=== PATIENT | female | born 1945 | race Hispanic/Latino ===

== ENCOUNTER 2018-11-29 08:58 | Observation (INO) | payer MEDICARE, BC ==
[2018-11-29 08:58] VITALS: BMI 29.8
--- NOTE | 2018-11-29 09:17 | C.PDOC ---
History Of Present Illness 73 year old female presents to the emergency department with complaints of midsternal chest pain since this morning. Patient states that she got up to go to the bathroom at 3AM and felt the pain in her right arm, radiating to her rig ht shoulder. Patient states that she thought her pain was initially muscular due to having a procedure done on her left AV fistula which involved stretching of her arms. Patient was receiving dialysis this morning and her chest pain worsened, she states that she finished the majority of her dialysis and was brought here. Patient describes the pain as a pressure, worse with movement and inspiration. Patient reports that she was given Nitro at the dialysis facility which made her dizzy and provided no relief of pain. Patient states that she takes a baby aspirin daily but did not take it today. Patient denies shortness of breath, dyspnea, swelling, nausea, vomiting, numbness/tingling, headache, back pain, and abdominal pain. Patient's manager advanced is Dr. Vences, and her advanced practice nurse psychotherapist is Dr. Tuttle. Patient reports having a catheterization 4 months ago due to some clogged arteries, but not intervention was necessary at that time. Time Seen by Provider: 11/29/18 09:06 Chief Complaint (Nursing): Chest Pain History Per: Patient History/Exam Limitations: no limitations Onset/Duration Of Symptoms: Hrs Current Symptoms Are (Timing): Still Present Quality: Pressure, "Pain" Associated Symptoms: denies: Nausea, Dyspnea Exacerbating Factors: Movement, Deep Breathing Nitro Therapy Administered: No Relief Past Medical History Reviewed: Historical Data, Nursing Documentation, Vital Signs Vital Signs: Last Vital Signs Temp 98.2 F 11/29/18 09:05 Pulse 76 11/29/18 09:05 Resp 16 11/29/18 09:05 BP 128/50 L 11/29/18 09:05 Pulse Ox 95 11/29/18 09:05 Primary Care Provider: Rubi Malcolm - Medical History PMH: Arthritis, CHF, COPD, Diabetes, Emphysema, Fractures, Gall Bladder Disease, HTN, Hypercholesterolemia, Hypothyroidism, Peripheral Edema, End Stage Renal Disease, Chronic Kidney Disease Surgical History: Cholecystectomy - [facility] Procedures FLUOROSCOPY OF R JUGULAR VEIN USING OT CONTRAST, GUIDANCE (11/04/15) INSERT INFUSION DEV IN R EXT JUGULAR VEIN, PERC (11/04/15) INSERTION OF INFUSION DEV INTO SUP VENA CAVA, PERC APPROACH (01/11/16) INSERTION OF SPACER INTO LEFT KNEE JOINT, OPEN APPROACH (01/11/16) PERFORMANCE OF URINARY FILTRATION, MULTIPLE (06/06/16) PERFORMANCE OF URINARY FILTRATION, SINGLE (11/04/15) REMOVAL OF LINER FROM LEFT KNEE JOINT, OPEN APPROACH (06/06/16) REMOVAL OF SYNTH SUB FROM L KNEE JT, OPEN APPROACH (01/11/16) SUPPLEMENT L KNEE JT, FEMORAL WITH LINER, OPEN APPROACH (06/06/16) TRANSFUSE NONAUT RED BLOOD CELLS IN PERIPH VEIN, PERC (11/04/15) Family History: States: No Known Family Hx - Social History Hx Tobacco Use: Yes Hx Alcohol Use: No Hx Substance Use: No - Immunization History Hx Tetanus Toxoid Vaccination: Yes Hx Influenza Vaccination: Yes Hx Pneumococcal Vaccination: Yes Review Of Systems Except As Marked, All Systems Reviewed And Found Negative. Constitutional: Negative for: Fever, Chills Cardiovascular: Positive for: Chest Pain Respiratory: Negative for: Cough, Shortness of Breath Gastrointestinal: Negative for: Nausea, Vomiting, Abdominal Pain Musculoskeletal: Negative for: Back Pain Neurological: Negative for: Headache Physical Exam - Physical Exam Appears: Non-toxic, No Acute Distress, Other (overweight) Skin: Warm, Dry Head: Atraumatic, Normacephalic Eye(s): bilateral: Normal Inspection Nose: Normal Oral Mucosa: Moist Neck: Normal, Supple Chest: Symmetrical, Tenderness (reproducible midsternal tenderness) Cardiovascular: Rhythm Regular, No Murmur Respiratory: No Wheezing, Other (lower lung congestion b/l) Gastrointestinal/Abdominal: Soft, No Tenderness, No Guarding, No Rebound Back: Normal Inspection, No CVA Tenderness, No Vertebral Tenderness, No Decreased ROM, No Paraspinal Tenderness Extremity: No Pedal Edema, Other (palpable thrill to the left wrist AV fistula, bandages noted to the left forearm) Pulses: Right Brachial: Normal, Left Radial: Normal, Right Radial: Normal, Left Femoral: Normal Neurological/Psych: Oriented x3, Normal Speech, Normal Cognition ED Course And Treatment - Laboratory Results Result Diagrams: 11/29/18 09:36 11/29/18 09:36 Interpretation Of ECG: NSR at 76bpm, possible left atrial enlargement, left ve ntricular hypertrophy, nonspecific ST abnormality. O2 Sat by Pulse Oximetry: 95 (RA) Pulse Ox Interpretation: Normal - Radiology CXR: Interpreted by Me, Read By Radiologist CXR Interpretation: Yes: No Acute Disease - Other Rad CHEST XRAY X-Ray: Read By Radiologist Interpretation: Accession No. : [id number]. Patient Name / ID : ESME BRANHC / [id number]. Exam Date : 11/29/2018 09:40:01 ( Approved ). Study Comment : Sex / Age : F / [id number]. Creator : Autumn Carlisle. Dictator : Autumn Carlisle. Car Wash Supervisor : Digital Service Engineer : Autumn Humphries. Approver2 : Report Date : 11/29/2018 10:29:07. My Comment : . Date of service: 11/29/2018. HISTORY: chest pain. COMPARISON: 06/10/2016. TECHNIQUE: Chest PA and lateral views. FINDINGS: LUNGS: Discoid atelectasis and/or [id number] the left lung base noted. No interval consolidation. PLEURA: No significant pleural effusion identified. No pneumothorax apparent. CARDIOVASCULAR: There is presence of aortic atherosclerotic calcification on x-ray. Borderline cardiomegaly. No significant appearing pulmonary venous congestion. Prior dialysis catheter removed. OSSEOUS STRUCTURES: Thoracic spondylosis. VISUALIZED UPPER ABDOMEN: Normal. OTHER FINDINGS: None. IMPRESSION: Interval removal of the right dialysis catheter. Crisscrossing discoid atelectasis at the lateral left lung base. Other findings as above. - Physician Consult Information Time Consulting Physician Contacted: 10:43 (Spoke with Dr Tuttle, Photographic Aide, in person and agrees with plan for hospitalization.) Physician Contacted: Rubi Malcolm Outcome Of Conversation: will place patient in observation. Medical Decision Making Medical Decision Making: Plan: EKG Chemistry Hematology CXR Aspirin 81mg PO Rapid Strep Group A Disposition - Disposition Disposition: HOSPITALIZED Disposition Time: 10:45 - PA / OIL FIELD WORKER / Resident Statement / has reviewed & agrees with the documentation as recorded. - Scribe Statement The provider has reviewed the documentation as recorded by the Scribe (David Etienne) All medical record entries made by the Scribe were at my direction and personally dictated by me. I have reviewed the chart and agree that the record accurately reflects my personal performance of the history, physical exam, medical decision making, and the department course for this patient. I have also personally directed, reviewed, and agree with the discharge instructions and disposition.
[2018-11-29 09:40] LABS: BASO # 0.1 K/uL (0.0-0.2); BASO % 0.9 % (0.0-2.0); EOS # 0.3 K/uL (0.0-0.7); EOS % 1.9 % (0.0-4.0); HEMOGLOBIN 11.4 g/dL (11.0-16.0); LYMPH # 1.5 K/uL (1.0-4.3); MEAN CELL VOLUME 89.5 fL (81.0-99.0); MEAN CORPUSCULAR HEMOGLOBIN 29.8 pg (27.0-31.0); MEAN CORPUSCULAR HGB CONC 33.3 g/dL (33.0-37.0); MEAN PLATELET VOLUME 10.3 fL (7.2-11.7); MONO # 1.3 K/uL (0.0-0.8); MONO % 9.4 % (0.0-10.0); NEUT # 10.2 K/uL (1.8-7.0); NEUT % 76.8 % (50.0-75.0); RBC 3.85 Mil/uL (3.80-5.20); RED CELL DISTRIBUTION WIDTH 15.9 % (11.5-14.5); WHITE BLOOD COUNT 13.3 K/uL (4.8-10.8)
[2018-11-29 09:56] LABS: ALB/GLOB RATIO 1.4 (1.0-2.1); ALBUMIN 4.2 g/dL (3.5-5.0); ALT/SGPT 13 U/L (9-52); AST/SGOT 18 U/L (14-36); BLOOD UREA NITROGEN 27 mg/dL (7-17); CALCIUM 8.8 mg/dl (8.6-10.4); GFR NON-AFRICAN AMERICAN 15
[2018-11-29 10:07] LABS: B-TYPE NATRIURETIC PEPTIDE 4580 pg/mL (0-900)
--- NOTE | 2018-11-29 10:32 | RAD ---
Date of service: 11/29/2018 HISTORY: chest pain COMPARISON: 06/10/2016 TECHNIQUE: Chest PA and lateral views FINDINGS: LUNGS: Discoid atelectasis and/or [id number] the left lung base noted. No interval consolidation. PLEURA: No significant pleural effusion identified. No pneumothorax apparent. CARDIOVASCULAR: There is presence of aortic atherosclerotic calcification on x-ray. Borderline cardiomegaly. No significant appearing pulmonary venous congestion. Prior dialysis catheter removed. OSSEOUS STRUCTURES: Thoracic spondylosis. VISUALIZED UPPER ABDOMEN: Normal. OTHER FINDINGS: None. IMPRESSION: Interval removal of the right dialysis catheter. Crisscrossing discoid atelectasis at the lateral left lung base. Other findings as above.
--- NOTE | 2018-11-29 10:46 | CP.PCM.CON ---
History of Present Illness - History of Present Illness History of Present Illness: 73 year old female presents to the emergency department with complaints of midsternal chest pain since this morning. Patient states that she got up to go to the bathroom at 3AM and felt the pain in her right arm, radiating to her right shoulder. Patient states that she thought her pain was initially muscular due to having a procedure done on her left AV fistula which involved stretching of her arms. Patient was receiving dialysis this morning and her chest pain began there, she states that she finished the majority of her dialysis and was brought here. Patient describes the pain as a pressure, worse with movement and inspiration. Patient reports that she was given Nitro at the dialysis facility which made her dizzy and provided no relief of pain. Patient states that she takes a baby aspirin daily but did not take it today. Patient denies shortness of breath, dyspnea, swelling, nausea, vomiting, numbness/tingling, headache, back pain, and abdominal pain. Patient's pattern duplicator is Dr. Vences, and her visual presentation manager is Dr. Tuttle. Patient reports having a catheterization 4 months ago due to some clogged arteries, but not intervention was necessary at that time. Vital Signs: Last Vital Signs Temp 98.2 F 11/29/18 09:05 Pulse 76 11/29/18 09:05 Resp 16 11/29/18 09:05 BP 128/50 L 11/29/18 09:05 Pulse Ox 95 11/29/18 09:05 Primary Care Provider: Rubi Malcolm - Medical History PMH: Arthritis, CHF, COPD, Diabetes, Emphysema, Fractures, Gall Bladder Disease, HTN, Hypercholesterolemia, Hypothyroidism, Peripheral Edema, End Stage Renal Disease, Chronic Kidney Disease, CAD Surgical History: Cholecystectomy AV fistula, left knee surgery - [facility], [facility] Procedures FLUOROSCOPY OF R JUGULAR VEIN USING [facility] CONTRAST, GUIDANCE (11/04/15) INSERT INFUSION DEV IN R EXT JUGULAR VEIN, PERC (11/04/15) INSERTION OF INFUSION DEV INTO SUP VENA CAVA, PERC APPROACH (01/11/16) INSERTION OF SPACER INTO LEFT KNEE JOINT, OPEN APPROACH (01/11/16) PERFORMANCE OF URINARY FILTRATION, MULTIPLE (06/06/16) PERFORMANCE OF URINARY FILTRATION, SINGLE (11/04/15) REMOVAL OF LINER FROM LEFT KNEE JOINT, OPEN APPROACH (06/06/16) REMOVAL OF SYNTH SUB FROM L KNEE JT, OPEN APPROACH (01/11/16) SUPPLEMENT L KNEE JT, FEMORAL WITH LINER, OPEN APPROACH (06/06/16) TRANSFUSE NONAUT RED BLOOD CELLS IN PERIPH VEIN, PERC (11/04/15) Family History: States:brother on dialysis - Social History Hx Tobacco Use: Yes Hx Alcohol Use: No Hx Substance Use: No - Immunization History Hx Tetanus Toxoid Vaccination: Yes Hx Influenza Vaccination: Yes Hx Pneumococcal Vaccination: Yes Review Of Systems Except As Marked, All Systems Reviewed And Found Negative. Constitutional: Negative for: Fever, Chills Cardiovascular: Positive for: Chest Pain Respiratory: Negative for: Cough, Shortness of Breath Gastrointestinal: Negative for: Nausea, Vomiting, Abdominal Pain Musculoskeletal: Negative for: Back Pain Neurological: Negative for: Headache Review of Systems - Constitutional Constitutional: Fatigue, Weakness - EENT Eyes: absent: As Per HPI, Blind Spots, Blurred Vision, Change in Vision, Decreased Night Vision, Diplopia, Discharge, Dry Eye, Exophthalmos, Floaters, Irritation, Itchy Eyes, Loss of Peripheral Vision, Pain, Photophobia, Requires Corrective Lenses, Sees Flashes, Spots in Vision, Tunnel Vision, Other Visual D isturbances, Loss of Vision, Other Ears: absent: As Per HPI, Decreased Hearing, Ear Discharge, Ear Pain, Tinnitus, Abnormal Hearing, Disequilibrium, Dizziness, Other Nose/Mouth/Throat: absent: As Per HPI, Epistaxis, Nasal Congestion, Nasal Discharge, Nasal Obstruction, Nasal Trauma, Nose Pain, Post Nasal Drip, Sinus Pain, Sinus Pressure, Bleeding Gums, Change in Voice, Dental Pain, Dry Mouth, Dysphagia, Halitosis, Hoarsness, Lip Swelling, Mouth Lesions, Mouth Pain, Odynophagia, Sore Throat, Throat Swelling, Tongue Swelling, Facial Pain, Neck Pa in, Neck Mass, Other - Cardiovascular Cardiovascular: Chest Pain, Dyspnea on Exertion - Respiratory Respiratory: Cough, Pain with Coughing - Gastrointestinal Gastrointestinal: Nausea - Genitourinary Genitourinary: As Per HPI - Musculoskeletal Musculoskeletal: Muscle Cramps, Muscle Weakness, Myalgias - Integumentary Integumentary: absent: As Per HPI, Acne, Alopecia, Bleeding Lesions, Change in Hair, Change in Nails, Change in Pigmentation, Changing Lesions, Dry Skin, Erythema, Furuncle, Hirsutism, Lesions, New Lesions, Non-Healing Lesions, Photosensitivity, Pruritus, Rash, Skin Pain, Skin Ulcer, Sores, Striae, Swelling, Unusual Bruising, Wounds, Jaundice, Other - Neurological Neurological: Weakness Past Patient History - Past Medical History & Family History Past Medical History?: Yes Pertinent Family History: brother on dialysis - Past Social History Smoking Status: Former Smoker Chewing Tobacco Use: No Cigar Use: No Alcohol: None Drugs: Denies Home Situation {Lives}: With Family Domestic Violence: Negative - CARDIAC Hx Congestive Heart Failure: Yes Hx Hypercholesterolemia: Yes Hx Hypertension: Yes Hx Peripheral Edema: Yes - PULMONARY Hx Chronic Obstructive Pulmonary Disease (COPD): Yes Hx Emphysema: Yes - NEUROLOGICAL Hx Neurological Disorder: Yes ("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") - HEENT Hx HEENT Problems: Yes ('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") Hx Cataracts: Yes - RENAL Hx Chronic Kidney Disease: Yes - ENDOCRINE/METABOLIC Hx Hypothyroidism: Yes - HEMATOLOGICAL/ONCOLOGICAL Hx Blood Disorders: Yes Hx Blood Transfusions: Yes Hx Blood Transfusion Reaction: No - INTEGUMENTARY Hx Dermatological Problems: No - MUSCULOSKELETAL/RHEUMATOLOGICAL Hx Arthritis: Yes Hx Fractures: Yes - GASTROINTESTINAL Hx Gall Bladder Disease: Yes - GENITOURINARY/GYNECOLOGICAL Hx Genitourinary Disorders: Yes Hx Urinary Tract Infection: Yes Other/Comment: breast CA - PSYCHIATRIC Hx Substance Use: No - SURGICAL HISTORY Hx Cholecystectomy: Yes - ANESTHESIA Hx Anesthesia: Yes Hx Anesthesia Reactions: No Hx Malignant Hyperthermia: No Meds Allergies/Adverse Reactions: Allergies Allergy/AdvReac Type Severity Reaction Status Date / Time morphine Allergy Severe "EXTREMELY Verified 11/29/18 09:04 DIFFICULT TO AROUSE" levofloxacin [From Levaquin] Allergy Intermediate "MY JOINTS Verified 11/29/18 09:04 SWEEL" soy Allergy Intermediate RASH Verified 11/29/18 09:04 mycin family - Allergy Severe "RECTAL Uncoded 06/06/16 09:56 BLEEDING" Physical Exam - Constitutional Appears: In Acute Distress, Chronically Ill - Head Exam Head Exam: ATRAUMATIC, NORMAL INSPECTION - Eye Exam Eye Exam: EOMI, Normal appearance - Neck Exam Neck exam: Positive for: Normal Inspection. Negative for: Tenderness - Respiratory Exam Respiratory Exam: Rhonchi, NORMAL BREATHING PATTERN - Cardiovascular Exam Cardiovascular Exam: REGULAR RHYTHM, +S1 - GI/Abdominal Exam GI & Abdominal Exam: Soft. absent: Tenderness - Extremities Exam Extremities exam: Positive for: normal inspection. Negative for: tenderness - Neurological Exam Neurological exam: Alert, CN II-XII Intact - Skin Skin Exam: Dry, Warm Results - Vital Signs Recent Vital Signs: Last Vital Signs Temp 98.2 F 11/29/18 09:05 Pulse 76 11/29/18 09:05 Resp 16 11/29/18 09:05 BP 128/50 L 11/29/18 09:05 Pulse Ox 95 11/29/18 10:43 - Labs Result Diagrams: 11/29/18 09:36 11/29/18 09:36 Labs: Laboratory Results - last 24 hr 11/29/18 11/29/18 11/29/18 09:36 09:36 10:07 WBC 13.3 H RBC 3.85 Hgb 11.4 Hct 34.4 MCV 89.5 MCH 29.8 MCHC 33.3 RDW 15.9 H Plt Count 228 MPV 10.3 Neut % (Auto) 76.8 H Lymph % (Auto) 11.0 L Lewis % (Auto) 9.4 Eos % (Auto) 1.9 Baso % (Auto) 0.9 Neut # (Auto) 10.2 H Lymph # (Auto) 1.5 Lewis # (Auto) 1.3 H Eos # (Auto) 0.3 Baso # (Auto) 0.1 Sodium 138 Potassium 4.1 Chloride 88 L Carbon Dioxide 39 H Anion Gap 15 BUN 27 H Creatinine 3.0 H Est GFR ( Amer) 19 Est GFR (Non-Af Amer) 15 Random Glucose 134 H D Calcium 8.8 Total Bilirubin 0.5 AST 18 ALT 13 Alkaline Phosphatase 95 Troponin I < 0.0120 NT-Pro-B Natriuret Pep 4580 H Total Protein 7.1 Albumin 4.2 Globulin 2.9 Albumin/Globulin Ratio 1.4 Grp A Beta Strep Ag Negative Assessment & Plan (1) Atypical chest pain Status: Acute (2) Type 2 diabetes mellitus with diabetic nephropathy Status: Acute (3) Cardiomyopathy Status: Acute - Assessment and Plan (Free Text) Plan: monitor CPs cardio eval dialysis MWF- to arrange
[2018-11-29 15:39] VITALS: RESP 20
--- NOTE | 2018-11-29 19:30 | CP.PCM.PN ---
<Emil Lin - Last Filed: 11/29/18 19:44> Subjective - Date & Time of Evaluation Date of Evaluation: 11/29/18 Time of Evaluation: 19:21 - Subjective Subjective: HOSPITALIST SERVICE 73F PMHX of DM, HTN, ESRD HD (MWF), Breast Ca-DCIS, Hypothyroidism, hx of recurrent DVT, admitted for chest pain from yesterday AM, now resolved. First fel pain radiating to Left arm 2 nights ago, then again at dialysis center yesterday during session. Was given nitro, no improvement. Pt recently had L AVF procedure done. Pt said pain was worse with movement and breathing. Patient states she is compliant with home meds but did not take her baby aspirin on day of admission. ROS Pos+ chest pain Neg- shortness of breath, dyspnea, swelling, nausea, vomiting, numbness/tingling, headache, back pain, and abdominal pain. Cardio: Dr. Vences, Cooker Sulfite: Dr. Tuttle. PMHx: DM HTN ESRD HD (MWF),Breast Ca-DCIS, Hypothyroidism, hx of recurrent DVT PSx: Cath Jul no stents, L AVF October 2018, knee replacement 2015 FH: denies Soc Hx denies Allergies: as documented in EMR Objective - Vital Signs/Intake and Output Vital Signs (last 24 hours): Temp Pulse Resp BP Pulse Ox 98.3 F 69 20 122/57 L 95 11/29/18 15:38 11/29/18 18:00 11/29/18 15:38 11/29/18 15:38 11/29/18 16:22 - Labs Labs: 11/29/18 09:36 11/29/18 09:36 - Additional Findings Additional findings: - Constitutional Appears: In Acute Distress, Chronically Ill - Head Exam Head Exam: ATRAUMATIC, NORMAL INSPECTION - Eye Exam Eye Exam: EOMI, Normal appearance - Neck Exam Neck exam: Positive for: Normal Inspection. Negative for: Tenderness - Respiratory Exam Respiratory Exam: Rhonchi, NORMAL BREATHING PATTERN - Cardiovascular Exam Cardiovascular Exam: REGULAR RHYTHM, +S1 - GI/Abdominal Exam GI & Abdominal Exam: Soft. absent: Tenderness - Extremities Exam Extremities exam: Positive for: normal inspection. Negative for: tenderness - Neurological Exam Neurological exam: Alert, CN II-XII Intact - Skin Skin Exam: Dry, Warm Assessment and Plan - Assessment and Plan (Free Text) Assessment: 73F admitted for chest pain, r/o ACS, to get HD today Plan: Chest Pain Hx of CAD -trop neg -Imdur 60 -ASA 81 -Dr Vences Cardio consulted f/u recs HTN -Norvasc 5 Daily -Coreg 12.5 BID -Hydralazine 50 TID ESRD -Dr Tuttle consulted -HD TTS -Procrit, Drisdol, Feosol, Sensipar DM -ISS high -Glucotrol 10 daily -Renal diabetic diet -Accuchecks Hypothyroidism -synthroid 200 daily -monitor Chronic DVTs -eliquis 5 BID PPx PTX Elequis DISPO: Pt transfered to our service, starting HD as per nephro, f/u Cardio recs, trops neg CK PGY1 dw Dr Aceves <Edi Aceves - Last Filed: 11/30/18 19:09> Subjective - Date & Time of Evaluation Time of Evaluation: 20:00 - Subjective Subjective: I have seen and examined the patient. I agree with the findings and plan of care as documented by Dr. Lin. Patient with chest pain. ROMIx3 with EKG. Aspirin and Statin. Consult to Dr Vences. ESRD history. Consult to Dr Tuttle. History of diabetes. NISS and accuchecks. Monitor for acute changes. Objective - Vital Signs/Intake and Output Vital Signs (last 24 hours): Temp Pulse Resp BP Pulse Ox 97.5 F L 61 20 148/62 95 11/30/18 07:58 11/30/18 07:58 11/30/18 07:58 11/30/18 09:26 11/30/18 07:58 Intake and Output: 11/30/18 12/01/18 18:59 06:59 Intake Total 480 Balance 480 - Labs Labs: 11/30/18 07:59 11/30/18 07:59
[2018-11-29] MEDS ORDERED: Dextrose 50% SYRINGE Inj (50 ml) IV PRN (19:36)
[2018-11-29] MEDS ORDERED: Glucagon Recombinant 1 mg Inj IM PRN (19:36)
[2018-11-29] MEDS ORDERED: Ipratropium 0.02% Inhal Soln (0.5 mg/2.5 ml) UD IH SCH (20:00)
[2018-11-29] MEDS: (Novolin R) Insulin Human Regular 100 units/ml vial SC SCH (21:47)
[2018-11-29] MEDS: Ipratropium 0.02% Inhal Soln (0.5 mg/2.5 ml) UD IH SCH ×2 (22:26→23:53)
[2018-11-30] MEDS: Ipratropium 0.02% Inhal Soln (0.5 mg/2.5 ml) UD IH SCH ×3 (03:25→11:15)
[2018-11-30] MEDS ORDERED: Levothyroxine 200 MCG TAB PO SCH (06:30)
[2018-11-30] MEDS: (Novolin R) Insulin Human Regular 100 units/ml vial SC SCH ×2 (07:38→11:30)
[2018-11-30 07:59] VITALS: PULSE 61; TEMP 97.5; O2SAT 95
[2018-11-30 08:08] LABS: BASO # 0.1 K/uL (0.0-0.2); BASO % 1.4 % (0.0-2.0); EOS # 0.4 K/uL (0.0-0.7); EOS % 5.3 % (0.0-4.0); HEMOGLOBIN 10.9 g/dL (11.0-16.0); LYMPH # 1.7 K/uL (1.0-4.3); LYMPH % 23.6 % (20.0-40.0); MEAN CORPUSCULAR HEMOGLOBIN 30.4 pg (27.0-31.0); MEAN CORPUSCULAR HGB CONC 33.4 g/dL (33.0-37.0); MEAN PLATELET VOLUME 9.9 fL (7.2-11.7); MONO % 13.7 % (0.0-10.0); NEUT # 4.1 K/uL (1.8-7.0); RBC 3.59 Mil/uL (3.80-5.20); RED CELL DISTRIBUTION WIDTH 15.9 % (11.5-14.5); WHITE BLOOD COUNT 7.3 K/uL (4.8-10.8)
--- NOTE | 2018-11-30 08:41 | CP.PCM.CON ---
History of Present Illness - History of Present Illness History of Present Illness: The pt is a 73 yo female with PAD (s/p vascular surgery right leg), episode atrial fib (eliquis), pulmonary embolism, and non obstructive CAD ([place] [facility] [place] 50% LAD, 60% LCX). The day before yesterday, the patient was at the vein access center having a revascularization procedure on her right forearm av fistla. The nurse pulled her arm vigorously. yesterday, she had chest pain for the entire day, more than 12 hours,. It hurt to take a deep breath. No chest painb today. ECG is normal TNI are negative. Review of Systems - Review of Systems All systems: reviewed and no additional remarkable complaints except (as above) Past Patient History - Past Medical History & Family History Past Medical History?: Yes - Past Social History Smoking Status: Former Smoker Chewing Tobacco Use: No Cigar Use: No Alcohol: None Drugs: Denies Home Situation {Lives}: With Family Domestic Violence: Negative - CARDIAC Hx Congestive Heart Failure: Yes Hx Hypercholesterolemia: Yes Hx Hypertension: Yes Hx Peripheral Edema: Yes - PULMONARY Hx Chronic Obstructive Pulmonary Disease (COPD): Yes Hx Emphysema: Yes - NEUROLOGICAL Hx Neurological Disorder: Yes ("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") - HEENT Hx HEENT Problems: Yes ('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") Hx Cataracts: Yes - RENAL Hx Chronic Kidney Disease: Yes - ENDOCRINE/METABOLIC Hx Hypothyroidism: Yes - HEMATOLOGICAL/ONCOLOGICAL Hx Blood Disorders: Yes Hx Blood Transfusions: Yes Hx Blood Transfusion Reaction: No - INTEGUMENTARY Hx Dermatological Problems: No - MUSCULOSKELETAL/RHEUMATOLOGICAL Hx Arthritis: Yes Hx Fractures: Yes - GASTROINTESTINAL Hx Gall Bladder Disease: Yes - GENITOURINARY/GYNECOLOGICAL Hx Genitourinary Disorders: Yes Hx Urinary Tract Infection: Yes Other/Comment: breast CA - PSYCHIATRIC Hx Substance Use: No - SURGICAL HISTORY Hx Cholecystectomy: Yes - ANESTHESIA Hx Anesthesia: Yes Hx Anesthesia Reactions: No Hx Malignant Hyperthermia: No Meds Allergies/Adverse Reactions: Allergies Allergy/AdvReac Type Severity Reaction Status Date / Time morphine Allergy Severe "EXTREMELY Verified 11/29/18 09:04 DIFFICULT TO AROUSE" levofloxacin [From Levaquin] Allergy Intermediate "MY JOINTS Verified 11/29/18 09:04 SWEEL" soy Allergy Intermediate RASH Verified 11/29/18 09:04 mycin family - Allergy Severe "RECTAL Uncoded 06/06/16 09:56 BLEEDING" - Medications Medications: Current Medications Amlodipine Besylate (Norvasc) 5 mg PO DAILY [facility] Apixaban (Eliquis) 5 mg PO BID [facility] Aspirin (Aspirin Chewable) 81 mg PO DAILY [facility] Carvedilol (Coreg) 12.5 mg PO BID [facility] Cinacalcet (Sensipar) 30 mg PO DAILY [facility] Dextrose (Dextrose 50% Inj) 0 ml IV STAT PRN; Protocol PRN Reason: Hypoglycemia Protocol Dextrose (Glutose 15) 0 gm PO ONCE PRN; Protocol PRN Reason: Hypoglycemia Protocol Docusate Sodium (Colace) 100 mg PO BID [facility] Epoetin Vishnu (Procrit) 10,000 unit IV TTS [facility] Ergocalciferol (Drisdol 50,000 Intl Units Cap) 1 cap PO QWK [facility] Ferrous Sulfate (Feosol) 325 mg PO DAILY [facility] Glipizide (Glucotrol) 10 mg PO DAILY [facility] Glucagon (Glucagen Diagnostic Kit) 0 mg IM STAT PRN; Protocol PRN Reason: Hypoglycemia Protocol Hydralazine HCl (Apresoline) 50 mg PO TID [facility] Dextrose (Dextrose 5% In Water 1000 Ml) 1,000 mls @ 0 mls/hr IV .Q0M PRN; Protocol PRN Reason: Hypoglycemia Protocol Insulin Human Regular (Novolin R) 0 unit SC ACHS [facility]; Protocol Last Admin: 11/30/18 07:38 Dose: Not Given Ipratropium Artesian (Atrovent) 0.5 mg IH RQ4 [facility] Last Admin: 11/30/18 08:01 Dose: 0.5 mg Isosorbide Mononitrate (Imdur) 60 mg PO DAILY [facility] Levothyroxine Sodium (Synthroid) 200 mcg PO DAILY@0630 [facility] Last Admin: 11/30/18 06:25 Dose: 200 mcg Pantoprazole Sodium (Protonix Ec Tab) 40 mg PO DAILY [facility] Physical Exam - Constitutional Appears: Well (pressing on the patient's chest easily reproduces the patient's chest pain) - Head Exam Head Exam: ATRAUMATIC - Eye Exam Eye Exam: EOMI Pupil Exam: NORMAL ACCOMODATION - ENT Exam ENT Exam: Mucous Membranes Moist - Neck Exam Neck exam: Positive for: Normal Inspection - Respiratory Exam Respiratory Exam: Clear to Auscultation Bilateral - Cardiovascular Exam Cardiovascular Exam: REGULAR RHYTHM - GI/Abdominal Exam GI & Abdominal Exam: Normal Bowel Sounds - Extremities Exam Extremities exam: Positive for: normal inspection - Back Exam Back exam: NORMAL INSPECTION - Neurological Exam Neurological exam: Alert, CN II-XII Intact, Oriented x3, Reflexes Normal - Psychiatric Exam Psychiatric exam: Normal Affect, Normal Mood - Skin Skin Exam: Dry, Normal Color Results - Vital Signs Recent Vital Signs: Last Vital Signs Temp 97.5 F L 11/30/18 07:58 Pulse 61 11/30/18 07:58 Resp 20 11/30/18 07:58 BP 136/70 11/30/18 07:58 Pulse Ox 95 11/30/18 07:58 - Labs Result Diagrams: 11/30/18 07:59 11/29/18 09:36 Labs: Laboratory Results - last 24 hr 11/29/18 11/29/18 11/29/18 09:36 09:36 10:07 WBC 13.3 H RBC 3.85 Hgb 11.4 Hct 34.4 MCV 89.5 MCH 29.8 MCHC 33.3 RDW 15.9 H Plt Count 228 MPV 10.3 Neut % (Auto) 76.8 H Lymph % (Auto) 11.0 L Bath % (Auto) 9.4 Eos % (Auto) 1.9 Baso % (Auto) 0.9 Neut # (Auto) 10.2 H Lymph # (Auto) 1.5 Bath # (Auto) 1.3 H Eos # (Auto) 0.3 Baso # (Auto) 0.1 Sodium 138 Potassium 4.1 Chloride 88 L Carbon Dioxide 39 H Anion Gap 15 BUN 27 H Creatinine 3.0 H Est GFR ( Amer) 19 Est GFR (Non-Af Amer) 15 POC Glucose (mg/dL) Random Glucose 134 H D Calcium 8.8 Total Bilirubin 0.5 AST 18 ALT 13 Alkaline Phosphatase 95 Troponin I < 0.0120 NT-Pro-B Natriuret Pep 4580 H Total Protein 7.1 Albumin 4.2 Globulin 2.9 Albumin/Globulin Ratio 1.4 Grp A Beta Strep Ag Negative 11/29/18 11/29/18 11/30/18 16:27 21:29 06:24 WBC RBC Hgb Hct MCV MCH MCHC RDW Plt Count MPV Neut % (Auto) Lymph % (Auto) Bath % (Auto) Eos % (Auto) Baso % (Auto) Neut # (Auto) Lymph # (Auto) Bath # (Auto) Eos # (Auto) Baso # (Auto) Sodium Potassium Chloride Carbon Dioxide Anion Gap BUN Creatinine Est GFR ( Amer) Est GFR (Non-Af Amer) POC Glucose (mg/dL) 173 H 149 H 112 H Random Glucose Calcium Total Bilirubin AST ALT Alkaline Phosphatase Troponin I NT-Pro-B Natriuret Pep Total Protein Albumin Globulin Albumin/Globulin Ratio Grp A Beta Strep Ag 11/30/18 11/30/18 07:59 07:59 WBC 7.3 RBC 3.59 L Hgb 10.9 L Hct 32.7 L MCV 91.0 MCH 30.4 MCHC 33.4 RDW 15.9 H Plt Count 208 MPV 9.9 Neut % (Auto) 56.0 Lymph % (Auto) 23.6 Bath % (Auto) 13.7 H Eos % (Auto) 5.3 H Baso % (Auto) 1.4 Neut # (Auto) 4.1 Lymph # (Auto) 1.7 Bath # (Auto) 1.0 H Eos # (Auto) 0.4 Baso # (Auto) 0.1 Sodium Potassium Chloride Carbon Dioxide Anion Gap BUN Creatinine Est GFR ( Amer) Est GFR (Non-Af Amer) POC Glucose (mg/dL) Random Glucose Calcium Total Bilirubin AST ALT Alkaline Phosphatase Troponin I < 0.0120 NT-Pro-B Natriuret Pep Total Protein Albumin Globulin Albumin/Globulin Ratio Grp A Beta Strep Ag - EKG Data EKG Interpreted by: Myself EKG shows normal: Sinus rhythm (no ischemic changes) Assessment & Plan - Assessment and Plan (Free Text) Assessment: 1. Reproducible , non anginal musculoskelatal chest pain., 2. Stable non obstructive CAD 3. PAF: in sinus, eliquis 4. Stable CV status. 5. Elevated BNP is not specific in kidney failure patients and should not be relied upon or ordered to make a diagnosis of CHF., 6. CXR and lungs are clear.
[2018-11-30 09:28] VITALS: BP 148/62
[2018-11-30 09:29] LABS: ALB/GLOB RATIO 1.2 (1.0-2.1); ALBUMIN 3.6 g/dL (3.5-5.0); ALT/SGPT 15 U/L (9-52); AST/SGOT 25 U/L (14-36); BLOOD UREA NITROGEN 36 mg/dL (7-17); CALCIUM 9.2 mg/dl (8.6-10.4); GFR NON-AFRICAN AMERICAN 8
[2018-11-30] MEDS ORDERED: Pantoprazole 40 mg EC Tab PO SCH (10:00)
[2018-11-30] MEDS ORDERED: Ergocalciferol 50,000 Intl Units Cap PO SCH (10:00)
--- NOTE | 2018-11-30 11:51 | CP.PCM.DIS ---
<Herbert Woods - Last Filed: 11/30/18 16:57> Provider - Provider Date of Admission: 11/29/18 10:51 Attending physician: Irish Bowens MD Primary care physician: Dr. Malcolm Consults: 11/30/18 07:50 Physician Consult Routine Comment: Consulting Provider: Sanjeev Vences Consulting Physician: Sanjeev Vences Reason for Consult: chest pain Time Spent in preparation of Discharge (in minutes): 30 Diagnosis - Discharge Diagnosis (1) Chest pain Status: Resolved (2) Deep venous thrombosis of lower extremity Status: Chronic Priority: High (3) Diabetes Status: Chronic (4) ESRD (end stage renal disease) on dialysis Status: Chronic (5) Hypertension Status: Chronic (6) Hypothyroid Status: Chronic Hospital Course - Lab Results Lab Results: Micro Results 11/29/18 10:07 Throat Group A Strep Throat Culture - Final NO BETA STREP GROUP A ISOLATED. Most Recent Lab Values WBC 7.3 K/uL (4.8-10.8) 11/30/18 07:59 RBC 3.59 Mil/uL (3.80-5.20) L 11/30/18 07:59 Hgb 10.9 g/dL (11.0-16.0) L 11/30/18 07:59 Hct 32.7 % (34.0-47.0) L 11/30/18 07:59 MCV 91.0 fL (81.0-99.0) 11/30/18 07:59 MCH 30.4 pg (27.0-31.0) 11/30/18 07:59 MCHC 33.4 g/dL (33.0-37.0) 11/30/18 07:59 RDW 15.9 % (11.5-14.5) H 11/30/18 07:59 Plt Count 208 K/uL (130-400) 11/30/18 07:59 MPV 9.9 fL (7.2-11.7) 11/30/18 07:59 Neut % (Auto) 56.0 % (50.0-75.0) 11/30/18 07:59 Lymph % (Auto) 23.6 % (20.0-40.0) 11/30/18 07:59 Harper % (Auto) 13.7 % (0.0-10.0) H 11/30/18 07:59 Eos % (Auto) 5.3 % (0.0-4.0) H 11/30/18 07:59 Baso % (Auto) 1.4 % (0.0-2.0) 11/30/18 07:59 Neut # (Auto) 4.1 K/uL (1.8-7.0) 11/30/18 07:59 Lymph # (Auto) 1.7 K/uL (1.0-4.3) 11/30/18 07:59 Harper # (Auto) 1.0 K/uL (0.0-0.8) H 11/30/18 07:59 Eos # (Auto) 0.4 K/uL (0.0-0.7) 11/30/18 07:59 Baso # (Auto) 0.1 K/uL (0.0-0.2) 11/30/18 07:59 Sodium 134 mmol/L (132-148) 11/30/18 07:59 Potassium 4.1 mmol/L (3.6-5.2) 11/30/18 07:59 Chloride 90 mmol/L (98-107) L 11/30/18 07:59 Carbon Dioxide 36 mmol/L (22-30) H 11/30/18 07:59 Anion Gap 12 (10-20) 11/30/18 07:59 BUN 36 mg/dL (7-17) H 11/30/18 07:59 Creatinine 5.2 mg/dL (0.7-1.2) H 11/30/18 07:59 Est GFR ( Amer) 10 11/30/18 07:59 Est GFR (Non-Af Amer) 8 11/30/18 07:59 POC Glucose (mg/dL) 210 mg/dL (65-110) H 11/30/18 10:57 Random Glucose 122 mg/dL (65-105) H 11/30/18 07:59 Calcium 9.2 mg/dl (8.6-10.4) 11/30/18 07:59 Phosphorus 4.7 mg/dL (2.5-4.5) H 11/30/18 07:59 Magnesium 2.0 mg/dL (1.6-2.3) 11/30/18 07:59 Total Bilirubin 0.7 mg/dL (0.2-1.3) 11/30/18 07:59 AST 25 U/L (14-36) 11/30/18 07:59 ALT 15 U/L (9-52) 11/30/18 07:59 Alkaline Phosphatase 79 U/L (38-126) 11/30/18 07:59 Troponin I < 0.0120 ng/mL (0.00-0.120) 11/30/18 07:59 NT-Pro-B Natriuret Pep 4580 pg/mL (0-900) H 11/29/18 09:36 Total Protein 6.7 g/dL (6.3-8.3) 11/30/18 07:59 Albumin 3.6 g/dL (3.5-5.0) 11/30/18 07:59 Globulin 3.0 gm/dL (2.2-3.9) 11/30/18 07:59 Albumin/Globulin Ratio 1.2 (1.0-2.1) 11/30/18 07:59 Grp A Beta Strep Ag Negative (NEGATIVE) 11/29/18 10:07 - Hospital Course Hospital Course: HPI from Admission: "73F PMHX of DM, HTN, ESRD HD (MWF), Breast Ca-DCIS, Hypothyroidism, hx of recurrent DVT, admitted for chest pain from yesterday AM, now resolved. First fel pain radiating to Left arm 2 nights ago, then again at dialysis center yesterday during session. Was given nitro, no improvement. Pt recently had L AVF procedure done. Pt said pain was worse with movement and breathing. Patient states she is compliant with home meds but did not take her baby aspirin on day of admission. ROS: Pos+ chest pain Neg- shortness of breath, dyspnea, swelling, nausea, vomiting, numbness/tingling, headache, back pain, and abdominal pain." Hospital Course: Pertinent imaging: CXR: Interval removal of R dialysis catheter. Crisscrossing discoid atelectasis at the lateral L lung base. Thoracic spondylosis. Aortic atherosclerotic calcification. Borderline cardiomegaly. EKG: NSR at 76 bpm, LVH, otherwise no acute St-t wave changes. Pt was admitted for chest pain r/o ACS. LIZABETH neg, chest pain improved during admission, more likely 2/2 costochondritis. Cardiology was consulted (Dr. Vences), who cleared the pt for d/c and to f/u in his office. Dr. Tuttle (Nephrology) was consulted, and recommended c/w HD treatment as prescribed. Pt was discharged to home in stable condition on 11/30/18. Instructed to c/w home medications as prescribed. This is a summary of the hospital course. For further details, please refer to the hospital EMR. Discharge Exam - Head Exam Head Exam: ATRAUMATIC, NORMOCEPHALIC - Eye Exam Eye Exam: EOMI, Normal appearance, PERRL - ENT Exam ENT Exam: Mucous Membranes Moist - Respiratory Exam Respiratory Exam: Clear to PA & Lateral, NORMAL BREATHING PATTERN, UNREMARKABLE - Cardiovascular Exam Cardiovascular Exam: REGULAR RHYTHM, +S1, +S2 - GI/Abdominal Exam GI & Abdominal Exam: Normal Bowel Sounds, Soft, Unremarkable. absent: Distended, Tenderness - Extremities Exam Extremities exam: full ROM, normal capillary refill, normal inspection, pedal pulses present - Neurological Exam Neurological exam: Alert, CN II-XII Intact, Oriented x3, Reflexes Normal - Skin Skin Exam: Dry, Intact, Normal Color, Warm Discharge Plan - Follow Up Plan Condition: GOOD Disposition: HOME/ ROUTINE Instructions: Heart Failure, Adult (DC), Chest Pain (DC), Costochondritis (DC) Additional Instructions: Please follow-up with your primary care physician (Dr. Malcolm) within 2-3 days of hospital discharge. Please resume your home medications as prescribed. Please follow-up with your Soup Mixer (Dr. Vences) within 1 week of hospital discharge. Continue with your hemodialysis appointment as prescribed by your psychologists. Should your symptoms recur, please call your primary care physician or report to your nearest emergency department. Referrals: Sanjeev Vences MD [Staff Provider] - Samir Tuttle MD [Staff Provider] - Rubi Malcolm MD [Staff Provider] - <Irish Bowens - Last Filed: 11/30/18 18:01> Provider - Provider Date of Admission: 11/29/18 10:51 Attending physician: Irish Bowens MD Consults: 11/30/18 07:50 Physician Consult Routine Comment: Consulting Provider: Baruchin,Sanjeev A Consulting Physician: Sanjeev Vences Reason for Consult: chest pain Hospital Course - Lab Results Lab Results: Micro Results 11/29/18 10:07 Throat Group A Strep Throat Culture - Final NO BETA STREP GROUP A ISOLATED. Most Recent Lab Values WBC 7.3 K/uL (4.8-10.8) 11/30/18 07:59 RBC 3.59 Mil/uL (3.80-5.20) L 11/30/18 07:59 Hgb 10.9 g/dL (11.0-16.0) L 11/30/18 07:59 Hct 32.7 % (34.0-47.0) L 11/30/18 07:59 MCV 91.0 fL (81.0-99.0) 11/30/18 07:59 MCH 30.4 pg (27.0-31.0) 11/30/18 07:59 MCHC 33.4 g/dL (33.0-37.0) 11/30/18 07:59 RDW 15.9 % (11.5-14.5) H 11/30/18 07:59 Plt Count 208 K/uL (130-400) 11/30/18 07:59 MPV 9.9 fL (7.2-11.7) 11/30/18 07:59 Neut % (Auto) 56.0 % (50.0-75.0) 11/30/18 07:59 Lymph % (Auto) 23.6 % (20.0-40.0) 11/30/18 07:59 Harper % (Auto) 13.7 % (0.0-10.0) H 11/30/18 07:59 Eos % (Auto) 5.3 % (0.0-4.0) H 11/30/18 07:59 Baso % (Auto) 1.4 % (0.0-2.0) 11/30/18 07:59 Neut # (Auto) 4.1 K/uL (1.8-7.0) 11/30/18 07:59 Lymph # (Auto) 1.7 K/uL (1.0-4.3) 11/30/18 07:59 Harper # (Auto) 1.0 K/uL (0.0-0.8) H 11/30/18 07:59 Eos # (Auto) 0.4 K/uL (0.0-0.7) 11/30/18 07:59 Baso # (Auto) 0.1 K/uL (0.0-0.2) 11/30/18 07:59 Sodium 134 mmol/L (132-148) 11/30/18 07:59 Potassium 4.1 mmol/L (3.6-5.2) 11/30/18 07:59 Chloride 90 mmol/L (98-107) L 11/30/18 07:59 Carbon Dioxide 36 mmol/L (22-30) H 11/30/18 07:59 Anion Gap 12 (10-20) 11/30/18 07:59 BUN 36 mg/dL (7-17) H 11/30/18 07:59 Creatinine 5.2 mg/dL (0.7-1.2) H 11/30/18 07:59 Est GFR ( Amer) 10 11/30/18 07:59 Est GFR (Non-Af Amer) 8 11/30/18 07:59 POC Glucose (mg/dL) 210 mg/dL (65-110) H 11/30/18 10:57 Random Glucose 122 mg/dL (65-105) H 11/30/18 07:59 Calcium 9.2 mg/dl (8.6-10.4) 11/30/18 07:59 Phosphorus 4.7 mg/dL (2.5-4.5) H 11/30/18 07:59 Magnesium 2.0 mg/dL (1.6-2.3) 11/30/18 07:59 Total Bilirubin 0.7 mg/dL (0.2-1.3) 11/30/18 07:59 AST 25 U/L (14-36) 11/30/18 07:59 ALT 15 U/L (9-52) 11/30/18 07:59 Alkaline Phosphatase 79 U/L (38-126) 11/30/18 07:59 Troponin I < 0.0120 ng/mL (0.00-0.120) 11/30/18 07:59 NT-Pro-B Natriuret Pep 4580 pg/mL (0-900) H 11/29/18 09:36 Total Protein 6.7 g/dL (6.3-8.3) 11/30/18 07:59 Albumin 3.6 g/dL (3.5-5.0) 11/30/18 07:59 Globulin 3.0 gm/dL (2.2-3.9) 11/30/18 07:59 Albumin/Globulin Ratio 1.2 (1.0-2.1) 11/30/18 07:59 Grp A Beta Strep Ag Negative (NEGATIVE) 11/29/18 10:07 Attending/Attestation - Attestation I have personally seen and examined this patient.: Yes I have fully participated in the care of the patient.: Yes I have reviewed all pertinent clinical information, including history, physical exam and plan: Yes Notes (Text): Patient was admitted for chest pain observation. Patient was seen with the resident.Spoke to DR Vences this morning. Stable for discharge and follow her primary care,psychologists and leather finisher out patient
--- NOTE | 2018-11-30 13:17 | CP.PCM.PN ---
Subjective - Date & Time of Evaluation Date of Evaluation: 11/30/18 Time of Evaluation: 13:15 - Subjective Subjective: feels better no new CPs seen by cardio- has muscular skeletal pains likely for discharge Objective - Vital Signs/Intake and Output Vital Signs (last 24 hours): Temp Pulse Resp BP Pulse Ox 97.5 F L 61 20 148/62 95 11/30/18 07:58 11/30/18 07:58 11/30/18 07:58 11/30/18 09:26 11/30/18 07:58 Intake and Output: 11/30/18 11/30/18 06:59 18:59 Intake Total 150 Balance 150 - Medications Medications: Current Medications Amlodipine Besylate (Norvasc) 5 mg PO DAILY [facility] Last Admin: 11/30/18 09:34 Dose: Not Given Apixaban (Eliquis) 5 mg PO BID [facility] Last Admin: 11/30/18 09:26 Dose: 5 mg Aspirin (Aspirin Chewable) 81 mg PO DAILY [facility] Last Admin: 11/30/18 09:26 Dose: 81 mg Carvedilol (Coreg) 12.5 mg PO BID [facility] Last Admin: 11/30/18 09:26 Dose: 12.5 mg Cinacalcet (Sensipar) 30 mg PO DAILY [facility] Last Admin: 11/30/18 09:27 Dose: Not Given Dextrose (Dextrose 50% Inj) 0 ml IV STAT PRN; Protocol PRN Reason: Hypoglycemia Protocol Dextrose (Glutose 15) 0 gm PO ONCE PRN; Protocol PRN Reason: Hypoglycemia Protocol Docusate Sodium (Colace) 100 mg PO BID [facility] Last Admin: 11/30/18 09:26 Dose: 100 mg Epoetin Vishnu (Procrit) 10,000 unit IV TTS [facility] Ergocalciferol (Drisdol 50,000 Intl Units Cap) 1 cap PO QWK [facility] Last Admin: 11/30/18 09:25 Dose: 1 cap Ferrous Sulfate (Feosol) 325 mg PO DAILY [facility] Last Admin: 11/30/18 09:25 Dose: 325 mg Glipizide (Glucotrol) 10 mg PO DAILY [facility] Last Admin: 11/30/18 09:25 Dose: 10 mg Glucagon (Glucagen Diagnostic Kit) 0 mg IM STAT PRN; Protocol PRN Reason: Hypoglycemia Protocol Hydralazine HCl (Apresoline) 50 mg PO TID [facility] Last Admin: 11/30/18 09:25 Dose: 50 mg Dextrose (Dextrose 5% In Water 1000 Ml) 1,000 mls @ 0 mls/hr IV .Q0M PRN; Protocol PRN Reason: Hypoglycemia Protocol Insulin Human Regular (Novolin R) 0 unit SC ACHS [facility]; Protocol Last Admin: 11/30/18 07:38 Dose: Not Given Ipratropium Jackson (Atrovent) 0.5 mg IH RQ4 [facility] Last Admin: 11/30/18 11:15 Dose: 0.5 mg Isosorbide Mononitrate (Imdur) 60 mg PO DAILY [facility] Last Admin: 11/30/18 09:27 Dose: 60 mg Levothyroxine Sodium (Synthroid) 200 mcg PO DAILY@0630 [facility] Last Admin: 11/30/18 06:25 Dose: 200 mcg Pantoprazole Sodium (Protonix Ec Tab) 40 mg PO DAILY [facility] Last Admin: 11/30/18 09:25 Dose: 40 mg - Labs Labs: 11/30/18 07:59 11/30/18 07:59 - Constitutional Appears: No Acute Distress, Chronically Ill - Head Exam Head Exam: ATRAUMATIC, NORMAL INSPECTION - Eye Exam Eye Exam: EOMI, Normal appearance - Neck Exam Neck Exam: Normal Inspection. absent: Tenderness - Respiratory Exam Respiratory Exam: Clear to Ausculation Bilateral, NORMAL BREATHING PATTERN - Cardiovascular Exam Cardiovascular Exam: REGULAR RHYTHM, +S1 - GI/Abdominal Exam GI & Abdominal Exam: Soft. absent: Tenderness - Extremities Exam Extremities Exam: Normal Inspection. absent: Tenderness - Neurological Exam Neurological Exam: Awake, CN II-XII Intact - Skin Skin Exam: Dry, Warm Assessment and Plan (1) Atypical chest pain Status: Acute (2) Type 2 diabetes mellitus with diabetic nephropathy Status: Acute (3) Cardiomyopathy Status: Acute (4) ESRD (end stage renal disease) Status: Acute - Assessment and Plan (Free Text) Plan: if discharged patient will go for regularly scheduled outpatient HD
--- NOTE | 2018-12-01 00:38 | CARD ---
APPROVED REPORT Date of service: 11/29/2018 EKG Measurement Heart [id number] <Conclusion> Normal sinus rhythm Possible Left atrial enlargement Left ventricular hypertrophy Nonspecific ST abnormality Abnormal ECG
[2018-12-01] MEDS ORDERED: Epoetin Alfa 10,000 unit/ml Dialysis IV SCH (10:00)
== END 2018-11-30 14:20 | disposition home or self-care (01) ==
LOC: C.ER 08:58 → C.9E 10:51 → C.5S 11:38
PROVIDERS: ADMIT Internal Medicine; ATTEND Internal Medicine
DX: R07.89 Other chest pain (principal); I42.9 Cardiomyopathy, unspecified; I25.10 Atherosclerotic heart disease of native coronary artery without angina pectoris; I48.0 Paroxysmal atrial fibrillation; Z79.01 Long term (current) use of anticoagulants; R79.89 Other specified abnormal findings of blood chemistry; E11.22 Type 2 diabetes mellitus with diabetic chronic kidney disease; E11.21 Type 2 diabetes mellitus with diabetic nephropathy; I13.2 Hypertensive heart and chronic kidney disease with heart failure and with stage 5 chronic kidney disease, or end stage renal disease; N18.6 End stage renal disease; I50.9 Heart failure, unspecified; Z99.2 Dependence on renal dialysis; Z95.828 Presence of other vascular implants and grafts; E11.51 Type 2 diabetes mellitus with diabetic peripheral angiopathy without gangrene; E03.9 Hypothyroidism, unspecified; J43.9 Emphysema, unspecified; E78.00 Pure hypercholesterolemia, unspecified; Z85.3 Personal history of malignant neoplasm of breast; Z86.73 Personal history of transient ischemic attack (TIA), and cerebral infarction without residual deficits; Z86.711 Personal history of pulmonary embolism; Z87.891 Personal history of nicotine dependence; Z90.49 Acquired absence of other specified parts of digestive tract; Z79.82 Long term (current) use of aspirin; Z79.4 Long term (current) use of insulin; Z79.899 Other long term (current) drug therapy
CPT/HCPCS: 36415; 71046; 80053; 82948; 83735; 83880; 84100; 84484; 85025; 87070; 87430; 94640; 99285; G0378